=== PATIENT | female | born 1950 | race Caucasian/White ===

== ENCOUNTER 2022-04-28 08:55 | Outpatient (REF) | payer MEDICARE, SELFPAY ==
[2022-04-28 11:13] LABS: MANUAL DIFF FLAG NO
[2022-04-28 11:23] LABS: Basophils Absolute Auto 0.1 X10*3/uL (0.0-0.2); Eosinophils Absolute Auto 0.3 X10*3/uL (0.0-0.4); Eosinophils Percent Auto 4.9 % (0-4); Hematocrit 42.4 % (37.0-47.0); Hemoglobin 13.8 g/dl (12.0-16.0); Imm Gran Abs Auto 0.01 X10*3/uL (0.00-0.03); Imm Gran Pct Auto 0.2 % (0.0-0.4); Lymphocytes Absolute Auto 1.7 X10*3/uL (1.2-4.9); Lymphocytes Percent Auto 33.8 % (20-40); Mean Corpuscular HGB Conc 32.5 g/dl (31.0-35.0); Mean Corpuscular Hemoglobin 28.8 pg (27.0-33.0); Mean Corpuscular Volume 88.5 fL (80.0-98.0); Mean Platelet Volume 10.5 fL (9.4-12.3); Monocytes Absolute Auto 0.3 X10*3/uL (0.1-1.2); Monocytes Percent Auto 6.2 % (2-11); Neutrophils Absolute Auto 2.8 x10*3/uL (2.0-8.3); Neutrophils Percent Auto 53.9 % (45-73); Platelet Count 237 X10*3/uL (160-400); Red Blood Count 4.79 X10*6/uL (4.20-5.50); Red Cell Distribution Width 14.6 % (11.0-16.0); White Blood Count 5.2 X10*3/uL (4.8-10.8)
[2022-04-28 11:29] LABS: Appearance Urine HAZY; Color Urine YELLOW; Glucose Urine UA NEG (NEG); Leukocyte Esterase Urine TRACE (NEG); Nitrite Urine POS (NEG); PH 5.5 (5.0-8.0); Urine Blood TRACE (NEG); Urine Ketones NEG (NEG); Urine Protein NEG (NEG-TRACE)
[2022-04-28 11:46] LABS: Bacteria Urine 3+ /LPF; Squamous Epithelial Cell Urine 1+ /LPF
[2022-04-28 12:01] LABS: Alanine Aminotransferase 44 U/L (0-31); Albumin Level 4.5 g/dL (3.5-5.0); Alkaline Phosphatase 64 U/L (39-117); Anion Gap 15 (12-20); Aspartate Amino Transferase 29 U/L (5-31); Bilirubin Total 0.7 mg/dL (0.0-1.0); Blood Urea Nitrogen 20 mg/dL (9-16); Carbon Dioxide 20 mmol/L (22-29); Chloride 109 mmol/L (96-108); Cholesterol 267 mg/dL; Estimated Glomerular Filt Rate > 60; Glucose Fasting 84 mg/dL (60-99); HDL Cholesterol 45 mg/dL; LDL Cholesterol Calculated 200 mg/dl; Sodium 140 mmol/L (135-145); Total Protein 7.2 g/dL (6.5-8.0); Triglycerides 110 mg/dL
[2022-04-28 12:24] LABS: Free T4 (Free Thyroxine) 0.51 ng/dL (0.71-1.85); Thyroid Stimulating Hormone 60.46 uIU/mL (0.32-4.0)
[2022-04-30 21:07] LABS: Triiodothyronine T3 Total 55 ng/dL (76-181)
== END 2022-04-28 08:56 | disposition home or self-care (01) ==
LOC: HO.WFDLDS 08:55
PROVIDERS: Visit Provider Family Medicine
DX: Z00.00 Encounter for general adult medical examination without abnormal findings (principal); E03.9 Hypothyroidism, unspecified
CPT/HCPCS: 36415; 80053; 80061; 81001; 84439; 84443; 84480; 85025

== ENCOUNTER 2022-05-04 11:57 | Outpatient (REF) | payer MEDICARE, SELFPAY | END 2022-05-04 11:58 | disposition home or self-care (01) | LOC: HO.LAB 11:57 | PROVIDERS: Visit Provider Family Medicine | DX: R82.71 Bacteriuria (principal) | CPT/HCPCS: 87086; 87088; 87186 ==

== ENCOUNTER 2022-06-10 13:13 | Outpatient (REF) | payer MEDICARE, BC, SELFPAY ==
--- NOTE | ~2022-06-10 | US_ITS ---
EXAMINATION: US VENOUS ULTRASOUND WITH DOPPLER LOWER EXTREMITY, RIGHT CLINICAL INFORMATION: History of DVT. Leg pain. COMPARISON: None TECHNIQUE: Ultrasound of the deep veins is performed from the hip to the calf with compression sonography and color and pulse Doppler assessment. Spectral analysis with color-flow imaging is performed. FINDINGS: The right common femoral, profunda and proximal and mid superficial femoral vein are patent. There is hypoechoic and hyperechoic material adjacent to the wall of the distal superficial femoral vein more suggestive of chronic changes than acute DVT. The popliteal, posterior tibial and peroneal veins are patent. No Palma's cyst. . US/US venous duplex LE RT IMPRESSION: Mixed hyper and hypoechoic material against the wall of the distal superficial femoral vein. Appearance is more suggestive of chronic changes from DVT than acute DVT. Short-term follow-up exam in several days to assess for change may be helpful if clinically indicated.
== END 2022-06-10 13:14 | disposition home or self-care (01) ==
LOC: HO.US 13:13
PROVIDERS: PCP Family Medicine; Visit Provider Internal Medicine
DX: M79.604 Pain in right leg (principal); Z86.718 Personal history of other venous thrombosis and embolism
CPT/HCPCS: 93971

== ENCOUNTER 2022-07-01 12:24 | Outpatient (REF) | payer MEDICARE, SELFPAY ==
--- NOTE | ~2022-07-01 | MM_ITS ---
EXAMINATION: MM SCREENING DIGITAL BREAST TOMOSYNTHESIS, BILATERAL CLINICAL INFORMATION: Screening. Asymptomatic. Prior outside mammography from [place] currently unavailable. Age 72. Family history breast cancer, mother. The lifetime risk of breast cancer based on the Tyrer-Cuzick Model is 9%. COMPARISON: None. TECHNIQUE: Digital breast tomosynthesis is performed in both the craniocaudal and mediolateral oblique views along with computer-aided detection (CAD). Synthesized 2D images are generated from the tomosynthesis. Additional left MLO view is provided. FINDINGS: The breasts are almost entirely fatty (ACR BI-RADS breast composition Category a). Background stromal markings appearing normal. There is no significant mass or architectural abnormality or abnormal calcifications. There are scattered bilateral round and rim calcifications. The axilla and skin contours are unremarkable. MM/MM tomosynthesis screening BI IMPRESSION: No mammographic evidence of malignancy. ASSESSMENT: BI-RADS 1: Negative RECOMMENDATION: Routine annual mammography screening. This patient's information was entered into a reminder system with a target due date for their next mammogram.
--- NOTE | ~2022-07-01 | MM_ITS ---
EXAMINATION: BONE DENSITOMETRY CLINICAL INDICATION: Encounter for screening for osteoporosis. COMPARISON: None (current study represents initial baseline exam). TECHNIQUE: Using a Data Stream CBOT DXA System (software version: 13.1) manufactured by [employer], dual-energy x-ray absorptiometry was performed of the lumbar spine and left hip. The images are of good technical quality. Summary results are attached. FINDINGS: AP SPINE L1-L4: BMD 0.736 g/cm2, Z-score -2.3, T-score -3.7, osteoporosis. LEFT FEMUR, NECK: BMD 0.813 g/cm2, Z-score 0.0, T-score -1.6, osteopenia. LEFT FEMUR, TOTAL: BMD 0.837 g/cm2, Z-score 0.0, T-score -1.4, osteopenia. IDENTIFIED RISK FACTORS: Menopause, hysterectomy, bilateral oophorectomy, family history (parental hip fracture), height loss, history of fracture (adult). HISTORY OF FRACTURE: Hip, humerus. MEDICATIONS: Bisphosphonates, calcium. MM/XR DEXA axial skeleton IMPRESSION: 1. DIAGNOSIS: Osteoporosis based on the lowest T-score value of -3.7 in the lumbar spine applying World Health Organization criteria. 2. 10-YEAR FRACTURE RISK PREDICTION, FRAX: According to the guidelines, FRAX calculation should only be performed on patients in the osteopenia bone density category. Therefore, FRAX was not performed on this patient. 3. Treatment Recommendations: NOF guidelines recommend consideration for treatment in postmenopausal women and men age 50 and older presenting with the following: -A hip or vertebral (clinical or morphometric) fracture. -T-score less than or equal to -2.5 at the femoral neck or spine after appropriate evaluation to exclude secondary causes. -Low bone mass at the hip or spine and a 10-year fracture probability by FRAX of greater than or equal to 3% for hip fracture or greater than or equal to 20% for major osteoporotic fracture based on the [place] adapted WHO algorithm. 4. Other Recommendations: All treatment decisions require clinical judgment and consideration of individual patient factors, including patient preferences, comorbidities, previous drug use, risk factors not captured in the FRAX model (e.g. frailty, falls, vitamin D deficiency, increased bone turnover, interval significant decline in bone density) and possible under or overestimation of fracture risk by FRAX. Additional medical evaluation for secondary cause of low bone mineral density may be appropriate. FUTURE SCAN RECOMMENDATION: People with diagnosed cases of osteoporosis or at high risk for fracture should have regular bone mineral density tests. For patients eligible for Medicare, routine testing is allowed once every 2 years. The testing frequency can be increased to one year for patients who have rapidly progressing disease, those who are receiving or discontinuing medical therapy to restore bone mass, or have additional risk factors.
== END 2022-07-01 12:25 | disposition home or self-care (01) ==
LOC: HO.MAMMO 12:24
PROVIDERS: Visit Provider Family Medicine
DX: Z12.31 Encounter for screening mammogram for malignant neoplasm of breast (principal); Z13.820 Encounter for screening for osteoporosis; Z78.0 Asymptomatic menopausal state; Z90.722 Acquired absence of ovaries, bilateral; Z90.710 Acquired absence of both cervix and uterus; Z87.81 Personal history of (healed) traumatic fracture
CPT/HCPCS: 77063; 77067; 77080

== ENCOUNTER 2022-07-05 11:51 | Outpatient (REF) | payer MEDICARE, SELFPAY ==
[2022-07-05 14:51] LABS: Free T4 (Free Thyroxine) 1.34 ng/dL (0.71-1.85); Thyroid Stimulating Hormone 0.36 uIU/mL (0.32-4.0)
[2022-07-07 06:06] LABS: Triiodothyronine T3 Total 98 ng/dL (76-181)
== END 2022-07-05 11:52 | disposition home or self-care (01) ==
LOC: HO.WFDLDS 11:51
PROVIDERS: Visit Provider Family Medicine
DX: E03.9 Hypothyroidism, unspecified (principal)
CPT/HCPCS: 36415; 84439; 84443; 84480

== ENCOUNTER → 2022-07-12 09:35 | Outpatient (BNVA) | payer MEDICARE, SELFPAY | PROVIDERS: PCP Family Medicine; Referring Provider Family Medicine; Visit Provider Physician Assistant | DX: K64.9 Unspecified hemorrhoids (principal); Z86.010 Personal history of colon polyps; Z12.11 Encounter for screening for malignant neoplasm of colon | CPT/HCPCS: 99202 ==

== ENCOUNTER 2022-09-13 14:16 | Outpatient (REF) | payer MEDICARE, BC, SELFPAY | END 2022-09-13 14:17 | disposition home or self-care (01) | LOC: HO.US 14:16 | PROVIDERS: Visit Provider Internal Medicine Endocrinology, Diabetes & Metabolism | DX: E04.2 Nontoxic multinodular goiter (principal) | CPT/HCPCS: 76536 ==

== ENCOUNTER → 2022-09-27 10:24 | Outpatient (BNVA) | payer MEDICARE, BC, SELFPAY | PROVIDERS: PCP Family Medicine; Visit Provider Internal Medicine Endocrinology, Diabetes & Metabolism | DX: E03.9 Hypothyroidism, unspecified (principal); E04.1 Nontoxic single thyroid nodule; M85.80 Other specified disorders of bone density and structure, unspecified site | CPT/HCPCS: 99202 ==

== ENCOUNTER 2023-05-08 10:18 | Outpatient (AMB) | payer MEDICARE, BC, SELFPAY ==
--- NOTE | 2023-05-08 10:30 | MHC.PC.OV ---
Vital Signs 05/08/23 10:31 Height 5 ft 3 in Weight 148 lb 6 oz BMI 26.3 BP 110/68 Blood Pressure Location Rt brachial Position Sitting Respiration 12 Pulse 76 Pulse Source Pulse Oximeter Temp 98 F Temp Source Temporal Artery Scan Pulse Oximetry (%) 98 Oxygen Delivery Method Room Air Intake Visit Reasons: CPE with f/u labs and health maint. Intake Note: Patient cane in complaining of pain in her right rib. Patient has not gotten labs done since last year due to her being in [place]. 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 HPI Details 73 y/o female presents for a CPE with f/u labs and health maintenance. No recent labs to review. Bone density in June 2022 and she is on alendronate 70mg q week. She reports rib pain - she had been helping her in therapy showing him some exercises and she states she had felt a crack on the R side of her ribs. She reports rib pain x2 weeks. Coughing and deep breathing causes her pain. Pt reports a fungal infection on her toes. HPI Comments History of Present Illness Details Documentation assistance for Isidro Easley MD, was provided by Fredo Todd, Component Lab Tech on 05/08/2023 11:27 AM FUAD. Wesley, Dr. Easley, have read, observed, and verified documentation. PFSH Medical History Deep vein thrombosis Osteopenia Surgical History H/O: hysterectomy History of hip replacement Family History Mother Breast cancer Other Mental health disorder Social History Household Members: Children Housing: Apartment Patient Tobacco Use Status: Never used Tobacco e-Cigarette/Vaping Use: Never Used Second Hand Smoke Exposure: No service: No Current occupational status: retired Current occupational exposures/hazards: No Cognitive needs: No Hearing needs: No Vision needs: No Questionnaire PHQ-9 Over the last 2 weeks, how often have you been bothered by any of the following problems? 1. Little interest or pleasure in doing things: not at all 2. Feeling down, depressed, or hopeless: not at all 3. Trouble falling or staying asleep, or sleeping too much: not at all 4. Feeling tired or having little energy: not at all 5. Poor appetite or overeating: several days 6. Feeling bad about yourself - or that you are a failure or have let yourself or your family down: not at all 7. Trouble concentrating on things, such as reading the newspaper or watching television: not at all 8. Moving or speaking so slowly that other people could have noticed. Or the opposite - being so fidgety or restless that you have been moving around a lot more than usual: not at all 9. Thoughts that you would be better off or of hurting yourself in some way: not at all Total score: 1 Source: Developed by Drs. Rojelio Stratton, Tere Christian, Parish Coffman and colleagues, with an educational beth from [employer]. Thrive Questionnaire Date Thrive assessed: 05/08/23 I am a: Patient What is your living situation today?: I have a steady place to live Within the past 12 months, did the food you bought not last and you didn't have the money to get more?: Never true Within the past 12 months, did you worry whether your food would run out before you got money to buy more?: Never true Do you have trouble paying for medicines?: Yes Do you have trouble getting transportation to medical appointments?: Yes Do you have trouble paying your heating and electricity bill?: Yes Do you have trouble taking care of your child, family member or friend?: No Do you have trouble with day-to-day activities such as bathing, preparing meals, shopping, managing finances, etc.?: No Are you currently unemployed and looking for a job?: No Are you interested in more education?: No Please select the resources that you would like help with: Paying for medicine, Transportation and Utilities Currently or been in a relationship where the following occur: no concerns reported AUDIT C Alcohol Use Questionnaire (AUDIT-C) 1. How often do you have a drink containing alcohol?: Never 3. How often do you have six or more drinks on one occasion?: Never Total Score: 0 LUCAS-7 AMB Questionnaire LUCAS-7 Date LUCAS - 7 assessed: 05/08/23 Feeling nervous, anxious, or on edge: 0 = Not at all Not being able to stop or control worryin = Not at all Worrying too much about different things: 0 = Not at all Trouble relaxin = Not at all Being so restless that it is hard to sit still: 1 = Several days Becoming easily annoyed or irritable: 0 = Not at all Feeling afraid as if something awful might happen: 0 = Not at all Total LUCAS-7 score (0-4 normal; 5-9 mild; 10-14 moderate; 15-21 severe): 1 Source: Developed by Drs. Rojelio Stratton, Tere Christian, Parish Coffman and colleagues, with an educational beth from [employer]. Review of Systems Const Denies chills, Denies fatigue, Denies fever(s), Denies headache(s) and Denies weakness Eyes Denies change in vision ENT Denies dizziness, Denies headache(s), Denies hearing loss, Denies nasal congestion, Denies sinus pain, Denies sinus pressure and Denies sore throat Card Denies chest pain, Denies lightheadedness, Denies dyspnea and Denies other (palpitations) Resp Denies cough, Denies dyspnea and Denies wheezing GI Denies abdominal pain, Denies melena, Denies hematochezia, Denies change in bowel habits, Denies dyspepsia and Denies nausea Denies hematuria and Denies dysuria Musc Denies abnormal gait, Denies myalgias, Denies arthralgias, Denies numbness and Denies tingling Skin/Breast Denies rash, Denies unusual bruising and Denies wounds Neuro Denies abnormal gait, Denies dizziness, Denies headache(s), Denies memory loss, Denies numbness, Denies Sensory deficit (Neuro), Denies tingling and Denies weakness Psych Denies anxiety, Denies depression and Denies memory loss Endo Denies cold intolerance, Denies fatigue, Denies heat intolerance, Denies polydipsia and Denies polyuria Quinton/Lymph Denies easy bleeding and Denies easy bruising Aller/Immun Denies wheezing Physical exam (Primary Care) Vital Signs: Last Vital Signs Temp 98 F 05/08/23 10:31 Pulse 76 05/08/23 10:31 Resp 12 05/08/23 10:31 BP 110/68 05/08/23 10:31 Pulse Ox 98 05/08/23 10:31 Oxygen Delivery Method Room Air 05/08/23 10:31 BMI result Body Mass Index 26.3 Tobacco/Smoking Status: Tobacco use Status Tobacco use date assessed 05/08/23 05/08/23 10:55 Patient Tobacco Use Status Never used Tobacco 05/08/23 10:38 e-Cigarette/Vaping Use Never Used 05/08/23 10:38 PHQ-9: PHQ-9 Score PHQ-9: Total score 1 05/08/23 11:25 Thrive Assessment: Date of Thrive Assessment Date Thrive assessed 05/08/23 05/08/23 10:55 Currently or been in a relationship where the following occur: no concerns reported Const General: no acute distress, well developed, alert and awake Nutritional Appearance: well nourished Orientation/consciousness: patient oriented x3 HENMT Head: Yes normocephalic and Yes atraumatic Ears: hearing grossly normal bilaterally and TM's normal bilaterally General nose exam: Normal external nose present and Normal nares present Mouth: Normal oral and palatal mucosa present and moist mucous membranes Teeth and gingiva: dentition normal Throat: Yes posterior oropharynx normal Eyes General: appearance normal, both eyes and all related structures Pupils: Equal, round and reactive pupils present and Pupil accommodation reflex normal EOM: EOMs intact bilaterally Neck Neck: Yes normal visual inspection, Yes no lymphadenopathy and Yes trachea midline Thyroid: Thyroid normal Carotids: no bruits Lymphatic: no lymphadenopathy noted Chest Chest palpation & inspection: normal inspection of the chest Resp Effort & Inspection: normal respiratory effort Auscultation: clear to auscultation bilaterally Cardio Rate: regular rate Rhythm: regular rhythm Heart sounds: S1 normal heart sound present, S2 normal heart sound present, no gallops, no murmurs and no rubs Bruits: no abdominal aortic bruits and no carotid bruits GI Palpation (GI): No Abdominal aortic bruit present, Soft to palpation, nontender, No hepatosplenomegaly present and No Rebound tenderness present Auscultation: normal bowel sounds General: Yes no CVA tenderness Back/Spine/Pelvis Back: no CVA tenderness Cervical Spine: cervical ROM normal and No Cervical spine tenderness Thoracic/Lumbar Spine: thoraco-lumbar ROM normal, No pain with thoraco-lumbar ROM, No thoracic spinal tenderness and No lumbar spinal tenderness Skin Lesions: no lesions Rashes: no rashes Trauma: no lacerations or abrasions Wounds: no wounds Nails: normal Neuro General: patient oriented x3 Cranial nerves: Yes Equal, round and reactive pupils present Cognition (Neuro): normal cognition Gait exam (Neuro): Normal gait present Motor exam (neuro): 5/5 motor strength present throughout Sensory Exam: No Sensory deficit (Neuro) Deep tendon reflexes (DTR's): Right patellar reflex intensity grade: 2+ and Left patellar reflex intensity grade: 2+ Extrem General: Yes normal to inspection and No edema Psych Appearance: grossly normal Affect: normal affect Attitude: cooperative Thought process: Normal thought process present Assessment and Plan Assessment & Plan (1) Adult general medical examination: Code(s): Z00.00 - Encounter for general adult medical examination without abnormal findings Plan: 73-year-old female presents for CPE with follow-up labs and health maintenance (2) Osteoporosis: Code(s): M81.0 - Age-related osteoporosis without current pathological fracture Plan: Currently taking alendronate Due for repeat bone density testing next year (3) Back pain: Code(s): M54.9 - Dorsalgia, unspecified Plan: Back pain and patient has a history of osteoporosis. About a month ago she felt a crunching sensation back. Concern for compression fracture secondary to osteoporosis Check x-rays (4) Rib pain: Code(s): R07.81 - Pleurodynia Plan: Right rib pain after some stretching exercises and patient has osteoporosis. Checking x-ray to rule out pathologic fracture (5) Swelling of left foot: Code(s): M79.89 - Other specified soft tissue disorders Plan: Likely some venous insufficiency Encouraged elevation (6) Breast cancer screening by mammogram: Code(s): Z12.31 - Encounter for screening mammogram for malignant neoplasm of breast Plan: Due for mammogram in June and I have ordered her screening test. (7) Fungal infection: Code(s): B49 - Unspecified mycosis Plan: Trial clotrimazole cream If not improving will refer to Podiatry (8) Screening for colon cancer: Code(s): Z12.11 - Encounter for screening for malignant neoplasm of colon Plan: Will discuss at her follow-up visit Orders: Orders Comprehensive [place]. Panel Fast Today Z00.00 - Encounter for general adult medical examination without abnormal findings Lipid Panel Today Z00.00 - Encounter for general adult medical examination without abnormal findings Microalbumin, Random (w Creat) Today I10 - Essential (primary) hypertension Complete Blood Count Auto Diff Today Z00.00 - Encounter for general adult medical examination without abnormal findings UA and rflx microscopic Today Z00.00 - Encounter for general adult medical examination without abnormal findings Triiodothyronine T3 Total Today E03.9 - Hypothyroidism, unspecified Free T4 (Free Thyroxine) Today E03.9 - Hypothyroidism, unspecified Thyroid Stimulating Hormone Today E03.9 - Hypothyroidism, unspecified MM tomosynthesis screening BI Today Z12.31 - Encounter for screening mammogram for malignant neoplasm of breast XR ribs LT 2V Today R07.81 - Pleurodynia XR lumbar spine 2-3V Today M54.9 - Dorsalgia, unspecified, M81.0 - Age-related osteoporosis without current pathological fracture XR thoracic spine 2V Today M54.9 - Dorsalgia, unspecified, M81.0 - Age-related osteoporosis without current pathological fracture Referrals RESEARCH AND DEVELOPMENT CHEMIST Referral Z90.710 - Acquired absence of both cervix and uterus Medications: New clotrimazole 1% 1 appl topical BID 45 grams 0RF 4 weeks Coding Level of Care Code Est Pt Level 3 (63815) Est Pt Prev Care >65y(59381) Diagnoses Adult general medical examination Z00.00 Osteoporosis M81.0 Back pain M54.9 Rib pain R07.81 Swelling of left foot M79.89 Breast cancer screening by mammogram Z12.31 Fungal infection B49 Screening for colon cancer Z12.11
[2023-05-08 10:31] VITALS: BP 110/68; PULSE 76; RESP 12; TEMP 36.6; O2SAT 98; BMI 26.3
== END 2023-05-08 11:49 | disposition home or self-care (01) ==
PROVIDERS: PCP Family Medicine; Visit Provider Family Medicine
DX: Z00.00 Encounter for general adult medical examination without abnormal findings (principal); R07.81 Pleurodynia; M54.9 Dorsalgia, unspecified; M81.0 Age-related osteoporosis without current pathological fracture; M79.89 Other specified soft tissue disorders; B49 Unspecified mycosis
CPT/HCPCS: 99213; 99397

== ENCOUNTER 2023-05-08 11:56 | Outpatient (REF) | payer MEDICARE, BC, SELFPAY ==
[2023-05-08 14:51] LABS: Appearance Urine Clear; Color Urine Yellow; Glucose Urine UA Negative (Negative); Leukocyte Esterase Urine Trace (Negative); Nitrite Urine Positive (Negative); PH 5.5 (5.0-9.0); UMIC TRIGGER UA YES; Urine Blood Negative (Negative); Urine Ketones Negative (Negative); Urine Protein Negative (Neg-Trace)
[2023-05-08 14:57] LABS: Bacteria Urine 4+ (None Seen); Hyaline Casts Urine 0-2 /LPF (0-2); RBC Urine 0-2 /HPF (0-2); Squamous Epithelial Cell Urine 0-2 /HPF (0-2); WBC Urine 0-5 /HPF (0-5)
[2023-05-09 02:34] LABS: Creatinine Urine 89.86 mg/dL
== END 2023-05-08 11:57 | disposition home or self-care (01) ==
LOC: HO.LAB 11:56
PROVIDERS: Visit Provider Family Medicine
DX: I10 Essential (primary) hypertension (principal)
CPT/HCPCS: 81001; 82043

== ENCOUNTER 2023-06-01 16:37 | Outpatient (AMB) | payer MEDICARE, BC, SELFPAY ==
--- NOTE | 2023-06-01 16:29 | MHC.PC.OV ---
Vital Signs 06/01/23 16:30 Height 5 ft 3 in Intake Visit Reasons: f/u CPE-labs and R rib pain Intake Note: Patient is calling to follow up on labs and right rib pain. Allergies walnut Allergy (Intermediate, Verified 05/08/23 10:47) tongue irritation codeine Allergy (Mild, Verified 05/08/23 10:47) Palpitations Tobacco use date assessed: 06/01/23 Fall risk assessment: No Falls in past year Last assessed Fall Risk: 06/01/23 Dental Screening Dental Screen Date: 06/01/23 Did you have a dental visit in the last 12 months?: Yes Did you have a dental problem in the last 6 months where you did not have access to dental care?: No Was dental information given to patient?: Patient has dentist HPI f/u CPE-labs and R rib pain HPI Details 73 y/o female presents to f/u labs via telemedicine. Diagnostic report 05/19/23 shows mildly displaced fractures of anterior R seventh, eight and ninth ribs. No pneumothroax or hemthorax. 4+ urine bacteria seen from labs drawn 05/08/23. [facility] Medical History (Updated 06/01/23 @ 16:33 by Carla Arredondo SKI MOLDER) Pituitary cyst Deep vein thrombosis Osteopenia Surgical History History of hip replacement H/O: hysterectomy Family History Mother Breast cancer Other Mental health disorder Social History Household Members: Children Housing: Apartment Patient Tobacco Use Status: Never used Tobacco e-Cigarette/Vaping Use: Never Used Second Hand Smoke Exposure: No service: No Current occupational status: retired Current occupational exposures/hazards: No Cognitive needs: No Hearing needs: No Vision needs: No Questionnaire Thrive Questionnaire Date Thrive assessed: 05/08/23 LUCAS-7 AMB Questionnaire LUCAS-7 Date ULCAS - 7 assessed: 05/08/23 Source: Developed by Drs. Rojelio Stratton, Tere Christian, Parish Coffman and colleagues, with an educational beth from [employer]. Review of Systems Const Denies chills, Denies fatigue, Denies fever(s), Denies headache(s) and Denies weakness ENT Denies dizziness and Denies headache(s) Card Denies dyspnea Resp Denies cough, Denies dyspnea, Denies wheezing and Denies other (shortness of breath) Musc Denies numbness and Denies tingling Neuro Denies dizziness, Denies headache(s), Denies numbness, Denies tingling and Denies weakness Psych Denies anxiety and Denies depression Endo Denies fatigue Aller/Immun Denies wheezing Physical exam (Primary Care) Tobacco/Smoking Status: Tobacco use Status Tobacco use date assessed 06/01/23 06/01/23 16:35 Patient Tobacco Use Status Never used Tobacco 06/01/23 16:30 e-Cigarette/Vaping Use Never Used 06/01/23 16:30 Thrive Assessment: Date of Thrive Assessment Date Thrive assessed 05/08/23 06/01/23 16:30 Telehealth Telehealth Location of provider rendering services: practice address Location of patient: address on file Patient Identification confirmed using: Name, : Yes Telehealth method: voice only Patient verbally consented to treatment: Yes Patient verbally consented to billing insurance company: Yes Patient informed of any privacy concerns related to visit: Yes Minutes spent on Phone/Video with Pt.: 13 Assessment and Plan Assessment & Plan (1) Rib pain: Code(s): R07.81 - Pleurodynia Plan: Right rib pain and patient has a minimally displaced fracture at 8th and 9th ribs She can continue ibuprofen, ice and heat (2) Bacteriuria: Code(s): R82.71 - Bacteriuria Plan: Urine studies were suspicious for UTI and she had had prior UTIs. Give her a script for nitrofurantoin. Repeat urinalysis shows no evidence of infection or back tree urine (3) Screening for colon cancer: Code(s): Z12.11 - Encounter for screening for malignant neoplasm of colon Plan: She has not had her colonoscopy yet and I have made a new referral to gastroenterology. Also she notes some blood in her stools. Follow-up with Gastroenterology as recommended (4) Osteoporosis: Code(s): M81.0 - Age-related osteoporosis without current pathological fracture Plan: History of osteoporosis and patient had recent fall with rib and vertebral compression fracture She is on alendronate Continue alendronate Follow-up with ortho for compression fracture (5) Blood in stool: Code(s): K92.1 - Melena Plan: As above, referred to GI (6) Hypothyroidism: Code(s): E03.9 - Hypothyroidism, unspecified Plan: TSH is mildly low No changes to medication today. She will repeat her thyroid hormone levels and we will follow-up on these at her next visit. If values are still off, will adjust levothyroxine. Orders: Orders Triiodothyronine T3 Total Today E03.9 - Hypothyroidism, unspecified Thyroid Stimulating Hormone Today E03.9 - Hypothyroidism, unspecified Basic Metabolic Panel Today E03.9 - Hypothyroidism, unspecified, Z00.00 - Encounter for general adult medical examination without abnormal findings Free T4 (Free Thyroxine) Today E03.9 - Hypothyroidism, unspecified Complete Blood Count Auto Diff Today E03.9 - Hypothyroidism, unspecified, Z00.00 - Encounter for general adult medical examination without abnormal findings Referrals Gastroenterology Referral K92.1 - Melena, Z12.11 - Encounter for screening for malignant neoplasm of colon Medications: Refilled ibuprofen 400 mg PO Q8H PRN 52 tabs 1RF pain 14 days E03.9 - Hypothyroidism, unspecified Coding Level of Care Code Tele Est Pt Level 2 (24515) Diagnoses Rib pain R07.81 Bacteriuria R82.71 Screening for colon cancer Z12.11 Osteoporosis M81.0 Blood in stool K92.1 Hypothyroidism E03.9
== END 2023-06-01 17:00 ==
LOC: HO.HMGFM 16:37
PROVIDERS: PCP Family Medicine; Visit Provider Family Medicine
DX: R07.81 Pleurodynia (principal); R82.71 Bacteriuria; E03.9 Hypothyroidism, unspecified; Z12.11 Encounter for screening for malignant neoplasm of colon; M81.0 Age-related osteoporosis without current pathological fracture; K92.1 Melena
CPT/HCPCS: G2252

== ENCOUNTER 2023-09-15 11:54 | Outpatient (REF) | payer MEDICARE, BC, SELFPAY ==
[2023-09-15 14:40] LABS: MANUAL DIFF FLAG NO
[2023-09-15 14:46] LABS: Basophils Percent Auto 0.8 % (0-2); Eosinophils Absolute Auto 0.1 X10*3/uL (0.0-0.4); Eosinophils Percent Auto 2.1 % (0-4); Hematocrit 44.5 % (37.0-47.0); Hemoglobin 14.5 g/dl (12.0-16.0); Imm Gran Abs Auto 0.01 X10*3/uL (0.00-0.03); Imm Gran Pct Auto 0.2 % (0.0-0.4); Lymphocytes Absolute Auto 1.7 X10*3/uL (1.2-4.9); Lymphocytes Percent Auto 33.5 % (20-40); Mean Corpuscular HGB Conc 32.6 g/dl (31.0-35.0); Mean Corpuscular Hemoglobin 28.9 pg (27.0-33.0); Mean Corpuscular Volume 88.8 fL (80.0-98.0); Mean Platelet Volume 10.7 fL (9.4-12.3); Monocytes Absolute Auto 0.4 X10*3/uL (0.1-1.2); Monocytes Percent Auto 6.8 % (2-11); Neutrophils Absolute Auto 2.9 x10*3/uL (2.0-8.3); Neutrophils Percent Auto 56.6 % (45-73); Platelet Count 215 X10*3/uL (160-400); Red Blood Count 5.01 X10*6/uL (4.20-5.50); Red Cell Distribution Width 13.4 % (11.0-16.0); White Blood Count 5.1 X10*3/uL (4.8-10.8)
[2023-09-15 15:10] LABS: Anion Gap 14 (12-20); Blood Urea Nitrogen 22 mg/dL (9-16); Calcium 9.6 mg/dL (8.4-10.2); Carbon Dioxide 23 mmol/L (22-29); Chloride 108 mmol/L (96-108); Estimated Glomerular Filt Rate > 60; Glucose Random 85 mg/dL (60-115); Potassium 3.7 mmol/L (3.3-5.1); Sodium 141 mmol/L (135-145)
[2023-09-15 15:29] LABS: Free T4 (Free Thyroxine) 1.19 ng/dL (0.71-1.85); Thyroid Stimulating Hormone 0.23 uIU/mL (0.32-4.0)
[2023-09-16 08:58] LABS: Triiodothyronine T3 Total 104 ng/dL (76-181)
== END 2023-09-15 11:55 | disposition home or self-care (01) ==
LOC: HO.WFDLDS 11:54
PROVIDERS: Visit Provider Family Medicine
DX: Z00.00 Encounter for general adult medical examination without abnormal findings (principal); E03.9 Hypothyroidism, unspecified; R35.0 Frequency of micturition
CPT/HCPCS: 36415; 80048; 84439; 84443; 84480; 85025

== ENCOUNTER 2023-09-15 12:08 | Outpatient (REF) | payer MEDICARE, BC, SELFPAY ==
[2023-09-15 18:22] LABS: Appearance Urine Clear; Color Urine Yellow; Glucose Urine UA Negative (Negative); Leukocyte Esterase Urine Small (1+) (Negative); Nitrite Urine Negative (Negative); PH 5.5 (5.0-9.0); Specific Gravity - Urine 1.025 (1.005-1.025); UMIC TRIGGER UACC YES; Urine Blood Negative (Negative); Urine Ketones Negative (Negative); Urine Protein Negative (Neg-Trace)
[2023-09-15 18:30] LABS: Bacteria Urine None Seen (None Seen); Hyaline Casts Urine 0-2 /LPF (0-2); RBC Urine 0-2 /HPF (0-2); Squamous Epithelial Cell Urine 0-2 /HPF (0-2); UACC Culture Trigger YES; WBC Urine 0-5 /HPF (0-5)
== END 2023-09-15 12:09 | disposition home or self-care (01) ==
LOC: HO.LAB 12:08
PROVIDERS: Visit Provider Family Medicine
DX: R35.0 Frequency of micturition (principal)
CPT/HCPCS: 81001; 87086

== ENCOUNTER 2023-09-21 11:01 | Outpatient (AMB) | payer MEDICARE, BC, SELFPAY ==
--- NOTE | 2023-09-21 11:22 | A.OFFPC_ITS ---
Vital Signs 09/21/23 11:23 Height 5 ft 3 in Weight 160 lb BMI 28.3 BP 108/62 Blood Pressure Location Rt brachial Position Sitting Respiration 13 Pulse 95 Pulse Source Pulse Oximeter Pulse Oximetry (%) 96 Oxygen Delivery Method Room Air Intake Visit Reasons: f/u hypothyroidism Intake Note: Patient is here to review her labs. Patient reports she has no concerns at this time. 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 Labs were drawn 09/15/23. Reviewed labs with pt. TSH worsened from 0.36 to 0.23. She is on levothyroxine 125mcg daily. Pt notes she has a surgery for her R knee soon with an accounts payable specialist at [place]. [facility] Medical History (Updated 06/01/23 @ 16:33 by Carla Arredondo [facility]) Pituitary cyst Deep vein thrombosis Osteopenia Surgical History History of hip replacement H/O: hysterectomy Family History Mother Breast cancer Other Mental health disorder Social History Household Members: Children Housing: Apartment Patient Tobacco Use Status: Never used Tobacco e-Cigarette/Vaping Use: Never Used Second Hand Smoke Exposure: No service: No Current occupational status: retired Current occupational exposures/hazards: No Cognitive needs: No Hearing needs: No Vision needs: No Questionnaire Thrive Questionnaire Date Thrive assessed: 05/08/23 LUCAS-7 AMB Questionnaire LUCAS-7 Date LUCAS - 7 assessed: 05/08/23 Source: Developed by Drs. Rojelio Stratton, Tere Christian, Parish Coffman and colleagues, with an educational beth from [employer]. Review of Systems Const Denies chills, Denies fatigue, Denies fever(s), Denies headache(s) and Denies weakness ENT Denies dizziness and Denies headache(s) Card Denies chest pain, Denies lightheadedness, Denies dyspnea and Denies other (Palpitations) Resp Denies cough, Denies dyspnea, Denies wheezing and Denies other ( shortness of breath) Musc Denies numbness and Denies tingling Neuro Denies dizziness, Denies headache(s), Denies numbness, Denies tingling, Denies paresthesias and Denies weakness Psych Denies anxiety and Denies depression Endo Denies fatigue Aller/Immun Denies wheezing Physical exam (Primary Care) Vital Signs: Last Vital Signs Pulse 95 09/21/23 11:23 Resp 13 09/21/23 11:23 BP 108/62 09/21/23 11:23 Pulse Ox 96 09/21/23 11:23 Oxygen Delivery Method Room Air 09/21/23 11:23 BMI result Body Mass Index 28.3 Tobacco/Smoking Status: Tobacco use Status Tobacco use date assessed 06/01/23 09/21/23 11:27 Patient Tobacco Use Status Never used Tobacco 09/21/23 11:27 e-Cigarette/Vaping Use Never Used 09/21/23 11:27 Thrive Assessment: Date of Thrive Assessment Date Thrive assessed 05/08/23 09/21/23 11:27 Const General: no acute distress and well developed Nutritional Appearance: well nourished Orientation/consciousness: patient oriented x3 [facility] Head: Yes normocephalic and Yes atraumatic Eyes General: appearance normal, both eyes and all related structures Pupils: Equal, round and reactive pupils present EOM: EOMs intact bilaterally Resp Effort & Inspection: normal respiratory effort Auscultation: clear to auscultation bilaterally Cardio Rate: regular rate Rhythm: regular rhythm Heart sounds: S1 normal heart sound present, S2 normal heart sound present, no gallops, no murmurs and no rubs Neuro General: patient oriented x3 and gait normal Cranial nerves: Yes Equal, round and reactive pupils present Psych Affect: normal affect Assessment and Plan Assessment & Plan (1) Hypothyroidism: Code(s): E03.9 - Hypothyroidism, unspecified Plan: TSH?still?mildly?suppressed. She?is?taking?levothyroxine?125?mcg?daily. She?will?take?levothyroxine?125?mcg?each?day?Monday?through?Monday?and?she?will? take?1/2?tab 62.5mcg on?Saturdays. If?we?need?to?reduce?levothyroxine?further,?we?will?have?her?take?112?mcg?each?d ay. (2) Right knee pain: Code(s): M25.561 - Pain in right knee Plan: Follow-up?with?ortho?as?recommended Orders: Orders Comprehensive Met. Panel Today E03.9 - Hypothyroidism, unspecified Free T4 (Free Thyroxine) Today E03.9 - Hypothyroidism, unspecified Thyroid Stimulating Hormone Today E03.9 - Hypothyroidism, unspecified Triiodothyronine T3 Total Today E03.9 - Hypothyroidism, unspecified Medications: Refilled alendronate 70 mg PO QWEEK 4 tabs 3RF 28 days cholecalciferol (vitamin D3) 50 mcg PO DAILY 90 caps 2RF 90 days Coding Level of Care Code Est Pt Level 3 (98993) Diagnoses Hypothyroidism E03.9 Right knee pain M25.561
[2023-09-21 11:23] VITALS: BP 108/62; PULSE 95; RESP 13; O2SAT 96; BMI 28.3
== END 2023-09-21 12:20 | disposition home or self-care (01) ==
PROVIDERS: PCP Family Medicine; Visit Provider Family Medicine
DX: E03.9 Hypothyroidism, unspecified (principal); M25.561 Pain in right knee
CPT/HCPCS: 99213

== ENCOUNTER 2024-03-07 14:23 | Outpatient (AMB) | payer MEDICARE, SELFPAY ==
[2024-03-07 14:24] VITALS: BP 100/70; PULSE 80; BMI 29.3
--- NOTE | 2024-03-07 14:24 | MHC.OFFVIS ---
Vital Signs 03/07/24 14:24 Height 5 ft 3 in Weight 165 lb 5.547 oz BMI 29.3 BP 100/70 Blood Pressure Location Rt brachial Position Sitting Pulse 80 Pulse Source Pulse Oximeter Intake Visit Reasons: f/u hypothyroidism/CONFIRMED Intake Note: Patient present today for Hypothyroidism follow up visit. Acetylene Gas Compressor Required: No Accompanied by: Self / Same As Patient Allergies walnut Allergy (Intermediate, Verified 03/07/24 14:28) tongue irritation codeine Allergy (Mild, Verified 03/07/24 14:28) Palpitations HPI Comments Details: 73 YO F with who is seen in consultation at the request of his PCP for Hyothyroidism. First diagnosed with Hypothyroidism 20 yrs ago with labs revealing hypothyroidism. Saw endo in [place] Currently using levothyroxine 125 ug QD. Denies fatigue, weight gain, cold intolerance, dry skin, hair loss, constipation. There is no hx of hyperlipidemia . Denies obstructive sx of goiter . Denies consuming any kelp or seaweed. Denies taking amiodarone. No family hx of thyroid problems She mentioned that she had a biopsy of 2 nodules and [place] but no information or records are available. She also mentioned she had a pituitary cyst in [place] but she was not sent for that reason today nor does she have any records Biotin: No thyroid ultrasound: 08/26/2022 FINDINGS: ? SIZE: Measurements of the thyroid lobes and nodules are given in sagittal, anteroposterior and transverse dimensions respectively. Right Thyroid Lobe: 4.1 x 1.4 x 1.6 cm, volume 5.1 mL. Parenchyma: The gland echotexture is heterogeneous. Thyroid vascularity is normal. Left Thyroid Lobe: 3.5 x 1.1 x 1.2 cm, volume 2.4 mL. Parenchyma: The gland echotexture is heterogeneous. Thyroid vascularity is normal. Isthmus: 0.16 cm in maximum AP dimension. Estimated total number of nodules greater than or equal to 1 cm: 0. Vision Therapist nodules are described as follows: 1. Location: Left mid. ?? ? Size: 0.2 x 0.2 x 0.1? cm, volume 0.00 to mL. ?? ? Nodule characteristics: ?? ? Composition: Solid (2). ?? ? Echogenicity: Hyperechoic (1). ?? ? Shape: Not taller than wide (0). ?? ? Margins: Smooth (0). ?? ? Echogenic Foci: None (0). ?? ? ACR TI-RADS total points: 3 ?? ? ACR TI-RADS category: 3 NODES: Bilateral cervical nodes are seen, none measuring pathologically enlarged measuring up to 0.6 mL short axis on the right and 0.4 similar short axis on the left. No suspicious cervical adenopathy. US/US thyroid IMPRESSION: Tiny 2 mm TR 3 left thyroid nodule which does not meet criteria for follow-up. ? Heterogeneous thyroid which can be seen in the setting of thyroiditis. Labs: 07/05/2022 TSH = 0.36 PFSH Medical History (Updated 06/01/23 @ 16:33 by Carla Arredondo [facility]) Pituitary cyst Deep vein thrombosis Osteopenia Surgical History History of hip replacement H/O: hysterectomy Family History Mother Breast cancer Other Mental health disorder Social History Household Members: Children Housing: Apartment Patient Tobacco Use Status: Never used Tobacco e-Cigarette/Vaping Use: Never Used Second Hand Smoke Exposure: No service: No Current occupational status: retired Current occupational exposures/hazards: No Cognitive needs: No Hearing needs: No Vision needs: No Physical Exam Vital Signs: Last Vital Signs Pulse 80 03/07/24 14:24 BP 100/70 03/07/24 14:24 BMI result Body Mass Index 29.3 HEENT reveals absence of lid lag , stare or proptosis or eyebrow loss. Thyroid gland measure 15 gms . No nodules or tenderness palpated. There is no cervical adenopathy palpated. Lungs CTA. Heart S1, S2 Reg R/R -M/R/G. Abdominal exam benign. Skin exam reveals absence of dryness or thyroid dermopathy or vitiligo. Nail exam reveals absence of thyroid acropachy or oncholysis. Neurologic exam reveals 2+ reflexes . Muscle Strength is 5/5 proximally. There are no tremors in upper extremities. Assessment & Plan Assessment & Plan (1) Hypothyroidism: Code(s): E03.9 - Hypothyroidism, unspecified Category: Medical Plan: this 73-year-old female with a history of hypothyroidism be replaced on 125 mcg levothyroxine. She appears to be clinically biochemically euthyroid. Plan is obtain the TSH level that was drawn at [facility] lab [place] and then adjust the levothyroxine accordingly . She did alert me to a previous problem of pituitary cyst that was operated on at [place]. I told her obtain some information to his operative reports and laboratory evaluation +office notes from [place] and to schedule a new patient appointment for this new diagnosis Coding Level of Care Code Est Pt Level 3 (68094) Diagnoses Hypothyroidism E03.9
== END 2024-03-07 15:04 | disposition home or self-care (01) ==
PROVIDERS: PCP Family Medicine; Visit Provider Internal Medicine Endocrinology, Diabetes & Metabolism
DX: E03.9 Hypothyroidism, unspecified (principal)
CPT/HCPCS: 99213

== ENCOUNTER → 2024-03-07 14:23 | Outpatient (BNVA) | payer MEDICARE, SELFPAY | PROVIDERS: PCP Family Medicine; Visit Provider Internal Medicine Endocrinology, Diabetes & Metabolism | DX: E03.9 Hypothyroidism, unspecified (principal) | CPT/HCPCS: 99212 ==

== ENCOUNTER 2024-05-15 09:14 | Outpatient (REF) | payer BC, MEDICARE, SELFPAY ==
[2024-05-15 11:40] LABS: Alanine Aminotransferase 38 U/L (0-31); Albumin Level 4.4 g/dL (3.5-5.0); Alkaline Phosphatase 77 U/L (39-117); Anion Gap 9 (12-20); Aspartate Amino Transferase 28 U/L (5-31); Bilirubin Total 0.6 mg/dL (0.0-1.0); Blood Urea Nitrogen 19 mg/dL (9-16); Calcium 9.7 mg/dL (8.4-10.2); Carbon Dioxide 29 mmol/L (22-29); Chloride 109 mmol/L (96-108); Estimated Glomerular Filt Rate > 60; Glucose Random 85 mg/dL (60-115); Potassium 3.7 mmol/L (3.3-5.1); Sodium 143 mmol/L (135-145); Total Protein 7.4 g/dL (6.5-8.0)
[2024-05-15 11:58] LABS: Thyroid Stimulating Hormone 0.74 uIU/mL (0.32-4.0)
[2024-05-15 14:16] LABS: Appearance Urine Cloudy; Color Urine Yellow; Glucose Urine UA Negative (Negative); Leukocyte Esterase Urine Small (1+) (Negative); Nitrite Urine Positive (Negative); PH 5.5 (5.0-9.0); UMIC TRIGGER UACC YES; Urine Blood Negative (Negative); Urine Ketones Trace mg/dL (Negative); Urine Protein Negative (Neg-Trace)
[2024-05-15 14:28] LABS: Bacteria Urine 4+ (None Seen); Hyaline Casts Urine 0-2 /LPF (0-2); RBC Urine 0-2 /HPF (0-2); UACC Culture Trigger YES; WBC Urine 0-5 /HPF (0-5)
[2024-05-15 15:07] LABS: Free T4 (Free Thyroxine) 1.07 ng/dL (0.71-1.85)
[2024-05-16 07:38] LABS: Triiodothyronine T3 Total 102 ng/dL (76-181)
== END 2024-05-15 09:15 | disposition home or self-care (01) ==
LOC: HO.WFDLDS 09:14
PROVIDERS: Referring Provider Internal Medicine Endocrinology, Diabetes & Metabolism; Visit Provider Family Medicine
DX: E03.9 Hypothyroidism, unspecified (principal); R35.0 Frequency of micturition
CPT/HCPCS: 36415; 80053; 81001; 84439; 84443; 84480; 87086; 87088; 87186

== ENCOUNTER → 2024-05-16 14:56 | Outpatient (AMB) | payer MEDICARE, BC, SELFPAY ==
--- NOTE | 2024-05-16 14:50 | A.OFFPC_ITS ---
Intake Visit Reasons: f/u hypothyroidism Intake Note: f/u on labs Allergies walnut Allergy (Intermediate, Verified 05/16/24 14:51) tongue irritation codeine Allergy (Mild, Verified 05/16/24 14:51) Palpitations Medication List - Last Reconciled 05/16/24 by Isidro Easley MD alendronate 70 mg PO QWEEK 28 days aspirin 81 mg PO DAILY atorvastatin (Lipitor) 40 mg PO BEDTIME 90 days calcium carbonate 600 mg PO DAILY 90 days cholecalciferol (vitamin D3) 50 mcg PO DAILY 90 days clotrimazole 1% 1 appl topical BID 4 weeks ibuprofen 400 mg PO Q8H PRN 14 days levothyroxine 112 mcg PO DAILY nitrofurantoin monohyd/m-cryst 100 mg 100 mg PO Q12H 5 days Tobacco use date assessed: 06/01/23 Dental Screening Dental Screen Date: 06/01/23 HPI f/u hypothyroidism HPI Details 74 y/[facility]. Labs drawn 05/15/24. Reviewed labs with pt. Elevated ALT of 38. TSH improved from 0.23 to 0.74. She is on levothyroxine 112mcg daily. 4+ urine bacteria seen. She reports some urinary frequency. Pt reports R knee pain and requesting an orthopedic referral. HPI Comments History of Present Illness Details Documentation assistance for Isidro Easley MD, was provided by Fredo Todd, Logistics Engineering Manager on 05/16/2024 at 3:52 PM EST. I, Dr. Easley, have read, observed, and verified documentation. [facility] Medical History (Updated 05/16/24 @ 16:04 by Isidro Easley MD) Pituitary cyst Deep vein thrombosis Osteopenia Surgical History History of hip replacement H/O: hysterectomy Family History Mother Breast cancer Other Mental health disorder Social History Household Members: Children Housing: Apartment Patient Tobacco Use Status: Never used Tobacco e-Cigarette/Vaping Use: Never Used Second Hand Smoke Exposure: No service: No Current occupational status: retired Current occupational exposures/hazards: No Cognitive needs: No Hearing needs: No Vision needs: No Questionnaire Thrive Questionnaire Date Thrive assessed: 05/08/23 LUCAS-7 AMB Questionnaire LUCAS-7 Date LUCAS - 7 assessed: 05/08/23 Source: Developed by Drs. Rojelio Stratton, Tere Christian, Parish Coffman and colleagues, with an educational beth from [employer]. Review of Systems Const Denies chills, Denies fatigue, Denies fever(s), Denies headache(s) and Denies weakness ENT Denies dizziness and Denies headache(s) Card Denies dyspnea Resp Denies cough, Denies dyspnea, Denies wheezing and Denies other (shortness of breath) Details: Urinary frequency Musc Denies numbness and Denies tingling Neuro Denies dizziness, Denies headache(s), Denies numbness, Denies tingling and Denies weakness Psych Denies anxiety and Denies depression Endo Denies fatigue Aller/Immun Denies wheezing Physical exam (Primary Care) Tobacco/Smoking Status: Tobacco use Status Tobacco use date assessed 06/01/23 05/16/24 14:50 Patient Tobacco Use Status Never used Tobacco 05/16/24 14:50 e-Cigarette/Vaping Use Never Used 05/16/24 14:50 Thrive Assessment: Date of Thrive Assessment Date Thrive assessed 05/08/23 05/16/24 14:50 Telehealth Telehealth Telehealth Platform: Telephone Location of provider rendering services: practice address Location of patient: address on file Patient Identification confirmed using: Name, : Yes Telehealth method: voice only Patient verbally consented to treatment: Yes Patient verbally consented to billing insurance company: Yes Patient informed of any privacy concerns related to visit: Yes Minutes spent on Phone/Video with Pt.: 6 Assessment and Plan Assessment & Plan (1) Hypothyroidism: Code(s): E03.9 - Hypothyroidism, unspecified Plan: Thyroid?hormone?levels?are?within?normal?range?at?112?mcg?daily Continue?current?medication?regimen (2) Bacteriuria: Code(s): R82.71 - Bacteriuria Plan: Patient?notes?some?frequency.??Possible?UTI Will?send?script?for?Macrobid (3) Elevated alanine aminotransferase (ALT) level: Code(s): R74.01 - Elevation of levels of liver transaminase levels Plan: Will?recheck?liver?enzymes?prior?to?next?visit (4) Right knee pain: Code(s): M25.561 - Pain in right knee Plan: Worsening?right?knee?pain?with?history?of?right?knee?osteoarthritis. Patient?requests?referral?to?Ortho - referred Orders: Orders Comprehensive [place]. Panel Fast Today R74.8 - Abnormal levels of other serum enzymes Referrals Orthopedics Referral M17.11 - Unilateral primary osteoarthritis, right knee, M25.561 - Pain in right knee Medications: Refilled nitrofurantoin monohyd/m-cryst 100 mg must administer with a meal/food 100 mg PO Q12H 5 days 10 caps 0RF Coding Level of Care Code Tele Est Pt Level 2 (36051) Diagnoses Hypothyroidism E03.9 Bacteriuria R82.71 Elevated alanine aminotransferase (ALT) level R74.01 Right knee pain M25.561
== END ==
PROVIDERS: PCP Family Medicine; Visit Provider Family Medicine
DX: E03.9 Hypothyroidism, unspecified (principal); R82.71 Bacteriuria; R74.01 Elevation of levels of liver transaminase levels; M25.561 Pain in right knee
CPT/HCPCS: 99441

== ENCOUNTER 2024-11-06 11:59 | Outpatient (REF) | payer BC, MEDICARE, SELFPAY ==
[2024-11-06 14:28] LABS: MANUAL DIFF FLAG NO
[2024-11-06 14:34] LABS: Basophils Percent Auto 0.7 % (0-2); Eosinophils Absolute Auto 0.1 X10*3/uL (0.0-0.4); Eosinophils Percent Auto 2.4 % (0-4); Hemoglobin 14.7 g/dl (12.0-16.0); Imm Gran Abs Auto 0.01 X10*3/uL (0.00-0.03); Imm Gran Pct Auto 0.2 % (0.0-0.4); Lymphocytes Absolute Auto 1.7 X10*3/uL (1.2-4.9); Lymphocytes Percent Auto 31.3 % (20-40); Mean Corpuscular HGB Conc 32.7 g/dl (31.0-35.0); Mean Corpuscular Hemoglobin 28.7 pg (27.0-33.0); Mean Corpuscular Volume 87.7 fL (80.0-98.0); Mean Platelet Volume 10.5 fL (9.4-12.3); Monocytes Absolute Auto 0.3 X10*3/uL (0.1-1.2); Monocytes Percent Auto 6.1 % (2-11); Neutrophils Absolute Auto 3.3 x10*3/uL (2.0-8.3); Neutrophils Percent Auto 59.3 % (45-73); Platelet Count 240 X10*3/uL (160-400); Red Blood Count 5.13 X10*6/uL (4.20-5.50); Red Cell Distribution Width 13.6 % (11.0-16.0); White Blood Count 5.5 X10*3/uL (4.8-10.8)
[2024-11-06 14:42] LABS: Appearance Urine Clear; Color Urine Yellow; Glucose Urine UA Negative (Negative); Leukocyte Esterase Urine Small (1+) (Negative); Nitrite Urine Positive (Negative); PH 5.5 (5.0-9.0); UMIC TRIGGER UA YES; Urine Blood Negative (Negative); Urine Ketones Trace mg/dL (Negative); Urine Protein Negative (Neg-Trace)
[2024-11-06 14:47] LABS: Bacteria Urine 4+ (None Seen); Hyaline Casts Urine 0-2 /LPF (0-2); RBC Urine 0-2 /HPF (0-2); Squamous Epithelial Cell Urine 0-2 /HPF (0-2)
[2024-11-06 14:58] LABS: Alanine Aminotransferase 45 U/L (0-31); Albumin Level 4.4 g/dL (3.5-5.0); Alkaline Phosphatase 62 U/L (39-117); Anion Gap 10 (12-20); Aspartate Amino Transferase 33 U/L (5-31); Bilirubin Total 0.8 mg/dL (0.0-1.0); Blood Urea Nitrogen 20 mg/dL (9-16); Calcium 9.6 mg/dL (8.4-10.2); Carbon Dioxide 23 mmol/L (22-29); Chloride 110 mmol/L (96-108); Cholesterol 133 mg/dL (<200); Estimated Glomerular Filt Rate > 60; Glucose Fasting 88 mg/dL (60-99); Glucose Random 88 mg/dL (60-115); HDL Cholesterol 39 mg/dL (>40); LDL Cholesterol Calculated 69 mg/dL (<100); Sodium 139 mmol/L (135-145); Total Protein 7.6 g/dL (6.5-8.0); Triglycerides 129 mg/dL (<150)
[2024-11-06 15:15] LABS: Free T4 (Free Thyroxine) 1.38 ng/dL (0.71-1.85); Thyroid Stimulating Hormone 0.85 uIU/mL (0.32-4.0)
[2024-11-06 19:43] LABS: Creatinine Urine 123.42 mg/dL; Microalbum/Creatinine Ratio Ur 11.3 ug/mg cr (<30)
[2024-11-07 10:23] LABS: Triiodothyronine T3 Total 100 ng/dL (76-181)
[2024-11-07 18:42] LABS: LDL Cholesterol Direct 75 mg/dL (<100)
== END 2024-11-06 12:00 | disposition home or self-care (01) ==
LOC: HO.WFDLDS 11:59
PROVIDERS: Visit Provider Family Medicine
DX: Z00.00 Encounter for general adult medical examination without abnormal findings (principal); R35.0 Frequency of micturition; I10 Essential (primary) hypertension; E03.9 Hypothyroidism, unspecified; E78.5 Hyperlipidemia, unspecified; R74.8 Abnormal levels of other serum enzymes
CPT/HCPCS: 36415; 80053; 80061; 81001; 82043; 82570; 83721; 84439; 84443; 84480; 85025; 87086; 87088; 87186

== ENCOUNTER 2024-11-07 09:28 | Outpatient (REF) | payer BC, MEDICARE, SELFPAY | END 2024-11-07 09:29 | disposition home or self-care (01) | LOC: HO.LAB 09:28 | PROVIDERS: PCP Family Medicine; Visit Provider Family Medicine | DX: Z13.89 Encounter for screening for other disorder (principal) ==

== ENCOUNTER 2024-12-27 10:50 | Outpatient (AMB) | payer MEDICARE, SELFPAY ==
--- NOTE | 2024-12-27 11:06 | A.OFFPC_ITS ---
Vital Signs 12/27/24 11:08 Height 5 ft 0.83 in Weight 163 lb 4 oz BMI 31.0 BP 110/60 Blood Pressure Location Rt brachial Position Sitting Respiration 14 Pulse 71 Pulse Source Pulse Oximeter Temp 97.9 F Temp Source Oral Pulse Oximetry (%) 97 Oxygen Delivery Method Room Air Intake Visit Reasons: Burning sensation in right breast Intake Note: patient is scheduled to follow up with pcp for right breast discomfort Performing Arts Technicians Required: No Allergies walnut Allergy (Intermediate, Verified 12/27/24 11:07) tongue irritation codeine Allergy (Mild, Verified 12/27/24 11:07) Palpitations Medication List - Last Reconciled 12/27/24 by Isidro Easley MD alendronate 70 mg PO QWEEK 28 days aspirin 81 mg PO DAILY atorvastatin (Lipitor) 40 mg PO BEDTIME 90 days calcium carbonate 600 mg PO DAILY 90 days cholecalciferol (vitamin D3) 50 mcg PO DAILY 90 days ibuprofen 400 mg PO Q8H PRN 14 days levothyroxine 112 mcg PO DAILY Tobacco use date assessed: 06/01/23 Fall risk assessment: No Falls in past year Last assessed Fall Risk: 12/27/24 Dental Screening Dental Screen Date: 06/01/23 HPI Burning sensation in right breast HPI Details 74 y/o female presents today with compla ints of burning sensation in R breast. Denies any skin changes, discharge. Also has ongoing leg pain, R knee and R leg pain. Has complaints of abd. discomfort. Also?had?ultrasound?of?her?liver?for?elevated?liver?enzymes?recently. This?should?coarse?hepatic?echotexture without?masses. Elastography?rules?out?compensated?advanced chronic?liver?disease. She reports abnormal urine odor. [facility] Medical History (Updated 12/27/24 @ 11:52 by Fredo Todd) Pituitary cyst Deep vein thrombosis Osteopenia Surgical History History of hip replacement H/O: hysterectomy Family History Mother Breast cancer Other Mental health disorder Social History Household Members: Children Housing: Apartment Patient Tobacco Use Status: Never used Tobacco e-Cigarette/Vaping Use: Never Used Second Hand Smoke Exposure: No service: No Current occupational status: retired Current occupational exposures/hazards: No Cognitive needs: No Hearing needs: No Vision needs: No Questionnaire PHQ-9 Over the last 2 weeks, how often have you been bothered by any of the following problems? 1. Little interest or pleasure in doing things: not at all 2. Feeling down, depressed, or hopeless: not at all 3. Trouble falling or staying asleep, or sleeping too much: not at all 4. Feeling tired or having little energy: not at all 5. Poor appetite or overeating: not at all 6. Feeling bad about yourself - or that you are a failure or have let yourself or your family down: not at all 7. Trouble concentrating on things, such as reading the newspaper or watching television: not at all 8. Moving or speaking so slowly that other people could have noticed. Or the opposite - being so fidgety or restless that you have been moving around a lot more than usual: not at all 9. Thoughts that you would be better off or of hurting yourself in some way: not at all Total score: 0 Depression Screening Interpretation: Negative Depression Screening Done: Yes 81624 - PHQ-9 Billing: Yes Source: Developed by Drs. Rojelio Stratton, Tere Christian, Parish Coffman and colleagues, with an educational beth from [employer]. Thrive Questionnaire Date Thrive assessed: 05/08/23 I am a: Parent/Caregiver What is your living situation today?: I have a steady place to live Within the past 12 months, did the food you bought not last and you didn't have the money to get more?: Never true Within the past 12 months, did you worry whether your food would run out before you got money to buy more?: Never true Do you have trouble paying for medicines?: Yes Do you have trouble getting transportation to medical appointments?: Yes Do you have trouble paying your heating and electricity bill?: Yes Do you have trouble taking care of your child, family member or friend?: No Do you have trouble with day-to-day activities such as bathing, preparing meals, shopping, managing finances, etc.?: No Are you currently unemployed and looking for a job?: I choose not to answer this question Are you interested in more education?: I choose not to answer this question Please select the resources that you would like help with: Paying for medicine and Utilities Currently or been in a relationship where the following occur: No concerns reported THRIVE Score: 2 AUDIT C Alcohol Use Questionnaire (AUDIT-C) 1. How often do you have a drink containing alcohol?: Never Total Score: 0 Score Reviewed/Action Taken: Yes LUCAS-7 AMB Questionnaire LUCAS-7 Date LUCAS - 7 assessed: 12/27/24 Feeling nervous, anxious, or on edge: 0 = Not at all Not being able to stop or control worryin = Not at all Worrying too much about different things: 0 = Not at all Trouble relaxin = Not at all Being so restless that it is hard to sit still: 0 = Not at all Becoming easily annoyed or irritable: 0 = Not at all Feeling afraid as if something awful might happen: 0 = Not at all Total LUCAS-7 score (0-4 normal; 5-9 mild; 10-14 moderate; 15-21 severe): 0 Source: Developed by Drs. Rojelio Stratton, Tere Christian, Parish Coffman and colleagues, with an educational beth from [employer]. LUCAS-7 Assessment Billing LUCAS-7 Assessment Tool: LUCAS-7 Assessment 78167 Review of Systems Const Denies chills, Denies fatigue, Denies fever(s), Denies headache(s) and Denies weakness ENT Denies dizziness and Denies headache(s) Card Denies dyspnea Resp Denies cough, Denies dyspnea, Denies wheezing and Denies other (shortness of breath) GI Reports abdominal pain Musc Denies numbness and Denies tingling Neuro Denies dizziness, Denies headache(s), Denies numbness, Denies tingling and Denies weakness Psych Denies anxiety and Denies depression Endo Denies fatigue Aller/Immun Denies wheezing Physical exam (Primary Care) Vital Signs: Last Vital Signs Temp 97.9 F 12/27/24 11:08 Pulse 71 12/27/24 11:08 Resp 14 12/27/24 11:08 BP 110/60 12/27/24 11:08 Pulse Ox 97 12/27/24 11:08 Oxygen Delivery Method Room Air 12/27/24 11:08 BMI result Body Mass Index 31.0 Tobacco/Smoking Status: Tobacco use Status Tobacco use date assessed 06/01/23 12/27/24 11:12 Patient Tobacco Use Status Never used Tobacco 12/27/24 11:12 e-Cigarette/Vaping Use Never Used 12/27/24 11:12 PHQ-9: PHQ-9 Score PHQ-9: Total score 0 12/27/24 11:21 Depression Screening Interpretation: Negative Thrive Assessment: Date of Thrive Assessment Date Thrive assessed 05/08/23 12/27/24 11:12 Currently or been in a relationship where the following occur: No concerns reported Const General: well developed; No acute distress Nutritional Appearance: well nourished Orientation/consciousness: patient oriented x3 HENMT Head: Yes normocephalic and Yes atraumatic Eyes General: appearance normal, both eyes and all related structures Pupils: Equal, round and reactive pupils present EOM: EOMs intact bilaterally Resp Effort & Inspection: normal respiratory effort Neuro General: patient oriented x3 and gait normal Cranial nerves: Yes Equal, round and reactive pupils present Psych Affect: normal affect Coding Level of Care Code Est Pt Level 4 (79454) Diagnoses Breast pain, right N64.4 Abdominal discomfort R10.9 Leg pain M79.606 Abnormal urine odor R82.90 Additional Codes LUCAS-7 Assessment Billing - LUCAS-7 Assessment Tool: LUCAS-7 Assessment 14815 ([id number]) PHQ-9 - 53443 - PHQ-9 Billing: Yes ([id number]) Assessment & Plan Assessment & Plan (1) Breast pain, right: Code(s): N64.4 - Mastodynia Category: Medical Plan: Right?lateral?breast?pain She?denies?any?modifying?factors. Tenderness to?palpation?at 9?o'clock?to?12?o'clock?position?and?she?does?have?fibrous?breasts?but?No?masses ?or?lumps?palpated. Will?get?diagnostic?mammogram?and?ultrasound (2) Abdominal discomfort: Code(s): R10.9 - Unspecified abdominal pain Category: Medical Plan: Patient?has?complaint?of?abdominal?pain. Tender?at?attachment?of?rectus?muscles?to?inferior?costal?margin. Some?pain?with?flexing?at?the?abdomen Also?had?ultrasound?of?her?liver?for?elevated?liver?enzymes?recently. This?should?coarse?hepatic?echotexture without?masses. Elastography?rules?out?compensated?advanced chronic?liver?disease. (3) Leg pain: Code(s): M79.606 - Pain in leg, unspecified Category: Medical Plan: Ongoing?right?knee & leg?pain which is worsening Had seen ortho in the past Check?x-ray?of?right Referred?to?Ortho (4) Abnormal urine odor: Code(s): R82.90 - Unspecified abnormal findings in urine Category: Medical Plan: Will?treat?empirically?with?nitrofurantoin Sending?urine?to?the?lab?for?urinalysis?with?reflex?to?cultureto?palpation Orders: Orders MM diagnostic mammo BI Today N64.4 - Mastodynia US breast RT complete Today N64.4 - Mastodynia XR knee RT 2V Today M17.11 - Unilateral primary osteoarthritis, right knee, M25.561 - Pain in right knee, M79.606 - Pain in leg, unspecified UA CC w/rflx Micro + Cult Today R82.90 - Unspecified abnormal findings in urine, Z00.00 - Encounter for general adult medical examination without abnormal findings Referrals Orthopedics Referral M17.11 - Unilateral primary osteoarthritis, right knee, M79.606 - Pain in leg, unspecified Medications: New nitrofurantoin macrocrystal must administer with a meal/food 100 mg PO Q12H 7 days 14 caps 0RF Refilled ibuprofen 400 mg PO Q8H 14 days PRN 52 tabs 1RF pain E03.9 - Hypothyroidism, unspecified
[2024-12-27 11:08] VITALS: BP 110/60; PULSE 71; RESP 14; TEMP 36.6; O2SAT 97; BMI 31.0
== END 2024-12-27 12:07 | disposition home or self-care (01) ==
PROVIDERS: PCP Family Medicine; Visit Provider Family Medicine
DX: N64.4 Mastodynia (principal); R10.9 Unspecified abdominal pain; M79.606 Pain in leg, unspecified; R82.90 Unspecified abnormal findings in urine

== ENCOUNTER → 2024-12-27 10:50 | Outpatient (BNVA) | payer BC, MEDICARE, SELFPAY | PROVIDERS: PCP Family Medicine; Visit Provider Family Medicine ==

== ENCOUNTER 2024-12-27 11:56 | Outpatient (REF) | payer MEDICARE, SELFPAY ==
[2024-12-27 14:01] LABS: Appearance Urine Clear; Color Urine Yellow; Glucose Urine UA Negative (Negative); Leukocyte Esterase Urine Small (1+) (Negative); Nitrite Urine Positive (Negative); PH 6.5 (5.0-9.0); UMIC TRIGGER UA YES; UMIC TRIGGER UACC YES; Urine Blood Negative (Negative); Urine Ketones Negative (Negative); Urine Protein Negative (Neg-Trace)
[2024-12-27 14:16] LABS: Bacteria Urine 4+ (None Seen); Hyaline Casts Urine 0-2 /LPF (0-2); RBC Urine 0-2 /HPF (0-2); Squamous Epithelial Cell Urine 0-2 /HPF (0-2); UACC Culture Trigger YES; WBC Urine 0-5 /HPF (0-5)
[2024-12-27 14:52] LABS: Free T4 (Free Thyroxine) 1.31 ng/dL (0.71-1.85)
== END 2024-12-27 11:57 | disposition home or self-care (01) ==
LOC: HO.WFDLDS 11:56
PROVIDERS: Referring Provider Internal Medicine Endocrinology, Diabetes & Metabolism; Visit Provider Family Medicine
DX: N64.4 Mastodynia (principal); R10.9 Unspecified abdominal pain; M25.561 Pain in right knee; M79.604 Pain in right leg; R82.90 Unspecified abnormal findings in urine; E03.9 Hypothyroidism, unspecified
CPT/HCPCS: 36415; 81001; 81003; 84439; 87086; 87088; 87186; 96127; 99212

== ENCOUNTER 2025-02-25 08:30 | Outpatient (REF) | payer MEDICARE, BC, SELFPAY ==
--- NOTE | ~2025-02-25 | XR_ITS ---
EXAMINATION: XR KNEE, RIGHT CLINICAL INFORMATION: M25.569 - Pain in unspecified knee COMPARISON: None available. TECHNIQUE: AP standing, lateral and sunrise views of the right knee. FINDINGS: There is moderate narrowing of the lateral joint space. There is moderate subchondral sclerosis. There are moderate marginal osteophytes in the lateral compartment. There is possible faint chondrocalcinosis. Central lucency projects over the subchondral cortex in the central femoral condyle on the frontal view. The medial compartment demonstrates marginal osteophyte along the tibial plateau. Intercondylar tubercles are peaked. Superior pole osteophyte is seen on the involving patella.. There is no joint effusion. The distal end of a femoral stem and cement is noted in the femur. XR/XR knee RT 3V IMPRESSION: Moderate osteoarthritis most pronounced in the lateral compartment with possible subchondral insufficiency fracture involving the lateral femoral condyle. Electronically signed by: Ryan Prajapati MD 02/25/2025 04:49 PM EDT
== END 2025-02-25 08:31 | disposition home or self-care (01) ==
LOC: HO.HOSX 08:30
PROVIDERS: Visit Provider Physician Assistant
DX: M25.561 Pain in right knee (principal); M17.11 Unilateral primary osteoarthritis, right knee
CPT/HCPCS: 20610; 73562; 99202; J1010; J2003

== ENCOUNTER 2025-02-25 13:52 | Outpatient (AMB) | payer MEDICARE, SELFPAY ==
--- NOTE | 2025-02-25 13:56 | MHC.OFFVIS ---
Vital Signs 02/25/25 14:05 Height 5 ft Weight 163 lb BMI 31.8 Intake Visit Reasons: New Pt - right knee pian Intake Note: Magnolia is a 74 year old female who presents today as a new patient for a evolution of her right knee pain. Previous treatment? Patient reports ongoing pain for many years. She states that her pain is on the whole knee. Patient notices that her pain is worse when she is laying down, getting up from a sitting position. She has tried and failed icing, heat, resting and taking Tylenol/Motrin. Allergies walnut Allergy (Intermediate, Verified 02/25/25 14:04) tongue irritation codeine Allergy (Mild, Verified 02/25/25 14:04) Palpitations HPI HPI New Pt - right knee pian: Details: Ms. Sauceda is a 74 yo female who presents to the office today for evaluation of right knee pain. She reports that she was told she would likely need a knee replacement. She has had pain in the right knee for quite some time. She has not had any treatment for the right knee in the past. Patient notices that her pain is worse when she is laying down, getting up from a sitting position. She has tried and failed icing, heat, resting and taking Tylenol/Motrin. [facility] Medical History (Updated 12/27/24 @ 11:52 by Fredo Todd) Pituitary cyst Deep vein thrombosis Osteopenia Surgical History History of hip replacement H/O: hysterectomy Family History Mother Breast cancer Other Mental health disorder Social History Household Members: Children Housing: Apartment Patient Tobacco Use Status: Never used Tobacco e-Cigarette/Vaping Use: Never Used Second Hand Smoke Exposure: No service: No Current occupational status: retired Current occupational exposures/hazards: No Cognitive needs: No Hearing needs: No Vision needs: No Review of Systems Const All systems reviewed & are unremarkable except as noted in HPI and below Physical Exam Vital Signs: BMI result Body Mass Index 31.8 Const General: cooperative, healthy appearing and no acute distress Resp Effort & Inspection: normal respiratory effort and able to speak in complete sentences Extrem Other: Right knee full range of motion. Slight tenderness to palpation both medial and lateral joint lines. Crepitus felt with range of motion. NVI. Office Procedures AMB Joint Injection/Aspiration Joint Injection/Aspiration Primary Site: right knee Prep: site was prepped using aseptic technique, ethochloride spray was applied and injection warnings given Injected: 80 mg of, DepoMedrol, with 8 mL of (2% plain lidocaine) and in the joint Approach Used: anterolateral Procedure: The patient tolerated the procedure well, but had some pain with the injection and there was some relief with the local anesthesia Coding - Large joint Procedure code (CPT) selection complete Assessment & Plan Assessment & Plan (1) Osteoarthritis of right knee: Code(s): M17.11 - Unilateral primary osteoarthritis, right knee Category: Medical Plan The patient was offered a cortisone injection in the right knee with 80 mg of DepoMedrol. The patient was explained the risks, benefits, and alternatives to receiving this injection. After receiving consent for the injection, the patient had the procedure done while in the office today. The patient tolerated the procedure well with no complications. Follow-up will be p.r.n., or sooner if needed X-rays of the back right knee which were obtained while in the office today and were reviewed by me, Ingrid Capps PA-C, revealed significant right knee osteoarthritis. Orders: Orders XR knee RT 3V Today M25.569 - Pain in unspecified knee Coding Level of Care Code New Pt Level 3 (50440) Diagnoses Osteoarthritis of right knee M17.11 CPT Codes Coding - 30744 Large joint: 11665 - Large joint ([id number])
[2025-02-25 14:05] VITALS: BMI 31.8
== END 2025-02-25 14:55 | disposition home or self-care (01) ==
LOC: HO.HOS 13:53
PROVIDERS: PCP Family Medicine; Visit Provider Physician Assistant
DX: M17.11 Unilateral primary osteoarthritis, right knee (principal)
CPT/HCPCS: 20610; 99203

== ENCOUNTER → 2025-02-25 13:55 | Outpatient (BNV) | payer BC, MEDICARE, SELFPAY | PROVIDERS: Visit Provider Radiology Diagnostic Radiology | DX: M17.11 Unilateral primary osteoarthritis, right knee (principal) | CPT/HCPCS: 73562 ==

== ENCOUNTER 2025-02-26 11:46 | Outpatient (REF) | payer MEDICARE, BC, SELFPAY ==
--- NOTE | ~2025-02-26 | MM_ITS ---
EXAMINATION: MM DIAGNOSTIC DIGITAL BREAST TOMOSYNTHESIS, BILATERAL Right limited ultrasound. CLINICAL INFORMATION: Right lateral breast pain for 3 months on and off. COMPARISON: Mammography: Comparison is made with relevant prior exams. TECHNIQUE: Digital breast mammography with tomosynthesis is performed in both the craniocaudal and mediolateral oblique views along with computer-aided detection (CAD). FINDINGS: There are scattered areas of fibroglandular density (ACR BI-RADS breast composition Category b). There are no significant masses, abnormal calcifications, or other abnormalities. Targeted color Doppler ultrasound scanning in the right breast area of patient's pain from 8-1 o'clock demonstrates normal fibronodular breast tissue. There is no sonographic abnormal findings. Results are provided to the patient at time of visit by the technologist. MM/MM tomosynthesis diagnostic BI IMPRESSION: Left: Negative. Right: No mammographic or sonographic abnormal findings to account for the patient's right breast pain. Recommend clinical evaluation and follow-up. ASSESSMENT: BI-RADS BI-RADS 1 - Negative RECOMMENDATION: 1 year F/U This patient's information was entered into a reminder system with a target due date for their next mammogram. Electronically signed by: Edith Jerez DO 02/26/2025 01:55 PM EDT
== END 2025-02-26 11:47 | disposition home or self-care (01) ==
LOC: HO.MAMMO 11:46
PROVIDERS: PCP Family Medicine; Visit Provider Family Medicine
DX: N64.4 Mastodynia (principal)
CPT/HCPCS: 76642; 77062; 77066

== ENCOUNTER → 2025-02-26 12:00 | Outpatient (BNV) | payer BC, MEDICARE, SELFPAY | PROVIDERS: PCP Family Medicine; Visit Provider Internal Medicine | DX: N64.4 Mastodynia (principal) | CPT/HCPCS: 76642; 77066; G0279 ==

== ENCOUNTER 2025-03-04 13:55 | Outpatient (AMB) | payer MEDICARE, BC, SELFPAY ==
--- NOTE | 2025-03-04 13:57 | MHC.OFFVIS ---
Vital Signs 03/04/25 13:59 Height 5 ft 2.5 in Weight 156 lb 1.396 oz BMI 28.1 BP 92/56 L Blood Pressure Location Rt brachial Position Sitting Pulse 81 Pulse Source Pulse Oximeter Pulse Oximetry (%) 98 Oxygen Delivery Method Room Air Intake Visit Reasons: Pituitary cyst Intake Note: Patient present today for Pituitary Cyst. Director Talent Management Required: No Accompanied by: Self / Same As Patient Allergies walnut Allergy (Intermediate, Verified 03/04/25 14:01) tongue irritation codeine Allergy (Mild, Verified 03/04/25 14:01) Palpitations Medication List - Last Reconciled 03/04/25 by Rojelio Garcia MD alendronate 70 mg PO QWEEK 28 days aspirin 81 mg PO DAILY atorvastatin (Lipitor) 40 mg PO BEDTIME 90 days calcium carbonate 600 mg PO DAILY 90 days cholecalciferol (vitamin D3) 50 mcg PO DAILY 90 days ibuprofen 400 mg PO Q8H PRN 14 days levothyroxine 112 mcg PO DAILY nitrofurantoin macrocrystal 100 mg PO Q12H 7 days HPI Comments Details: 73 YO F with who is seen in consultation previously seen for hypothyroidism referred today for evaluation of pituitary cyst. Pituitary MRI showed a sellar cystic lesion with possible effect on the optic chiasm. Patient denies any symptoms of acromegaly or breast discharge. She denies any symptoms of excess cortisol or deficiency cortisol.Had pituitary cyst in [place] in 2014 had transphenoidal surgery , Noticed some loss of vision The patient is a 74-year-old female presenting with issues related to a pituitary cyst. She was initially diagnosed in 2014 and underwent a transnasal surgical intervention in [place]. The cyst began increasing in size after a year, but the patient did not obtain further treatment due to personal circumstances. Current symptoms include visual impairments, specifically difficulties with peripheral vision, pointing toward visual field loss. An MRI showed a considerable cystic lesion, potentially affecting the optic nerves, but the patient denies headaches. She experiences occasional pinching sensations in the head. Recent tests, including a mammogram, were normal. Moreover, the patient reports no indications of endocrine dysfunctions, such as galactorrhea or acromegaly-like symptoms, but describes recent dizziness not related to positional changes. There's an emphasis on the potential impact of the cyst on visual structures with further investigation warranted. [facility] Medical History (Updated 12/27/24 @ 11:52 by Fredo Todd) Pituitary cyst Deep vein thrombosis Osteopenia Surgical History History of hip replacement H/O: hysterectomy Family History Mother Breast cancer Other Mental health disorder Social History Household Members: Children Housing: Apartment Patient Tobacco Use Status: Never used Tobacco e-Cigarette/Vaping Use: Never Used Second Hand Smoke Exposure: No service: No Current occupational status: retired Current occupational exposures/hazards: No Cognitive needs: No Hearing needs: No Vision needs: No Physical Exam Vital Signs: Last Vital Signs Pulse 81 03/04/25 13:59 BP 92/56 L 03/04/25 13:59 Pulse Ox 98 03/04/25 13:59 Oxygen Delivery Method Room Air 03/04/25 13:59 BMI result Body Mass Index 28.1 Const Other: Absence of acromegalic or cushingoid appearance. There is no visual field loss by gross confrontation Assessment & Plan Assessment & Plan (1) History of pituitary tumor: Code(s): Z87.898 - Personal history of other specified conditions Category: Medical Plan: This is a 74-year-old female with a history of pituitary cyst with possible compression of the optic chiasm. We will rule out hyper secretion or hypo secretion of pituitary hormones. Appears to be clinically and biochemically euthyroid Plan is to check a fasting prolactin, IGF-1 level and cortisol level at 08:00 a. We will also check 24 hour urine for free cortisol and creatinine. We will send patient to expert pituitary neurosurgeon namely Dr. Shyanne Chiang at [place] [id number]. Pituitary cyst The patient has a pituitary cyst identified via MRI, suggesting compression effects on nearby structures. Continued follow-up with a neurosurgical specialist, specifically Dr. Shyanne Chiang, is advised to determine the need for intervention, as her expertise in pituitary lesions will provide a definitive evaluation. Blood work to assess hormone levels for comprehensive management is planned. I discussed the significance of the pituitary cyst and its potential to impact visual function due to pressure effects on the optic nerves. I explained the importance of a specialized neurosurgical evaluation in [place] under Dr. Shyanne Chiang's care due to her expertise. We discussed the logistics of coordinating care for surgery if required and the need for comprehensive hormonal evaluations via blood and urine tests. I emphasized the risks of visual loss and hormonal dysregulation, which could occur if untreated, and outlined the next steps regarding coordinating care efficiently. - Call Dr. Shyanne Chiang's office to arrange a neurosurgical consultation. - Complete the blood and urine tests as directed. - Arrange for a detailed neuro-ophthalmology evaluation. - Maintain awareness of any changes in vision and report them promptly. - Keep copies of all medical records, imaging reports, and bring these to all appointments. - Follow instructions for blood tests to be done in the morning, fasting. - The patient had an opportunity to ask questions regarding treatment plan. The patient expressed understanding and agreement with the above treatment plan. Patient was informed and verbally consented to the use of an ambient scribe for clinic note documentation during this visit. Orders: Orders Prolactin Today - Personal history of other specified conditions IGF-1 (Somatomedin C) Today - Personal history of other specified conditions Cortisol, Free 24Hr Urine Today - Personal history of other specified conditions Cortisol Random Today - Personal history of other specified conditions Creatinine, 24 Hr Group Today - Personal history of other specified conditions Referrals Neurosurgery Referral . - Personal history of other specified conditions Coding Level of Care Code Est Pt Level 4 (09238) Diagnoses History of pituitary tumor
[2025-03-04 13:59] VITALS: BP 92/56; PULSE 81; O2SAT 98; BMI 28.1
== END 2025-03-04 14:40 | disposition home or self-care (01) ==
LOC: HO.ENCR 13:56
PROVIDERS: PCP Family Medicine; Visit Provider Internal Medicine Endocrinology, Diabetes & Metabolism
DX: Z87.898 Personal history of other specified conditions (principal)
CPT/HCPCS: 99214

== ENCOUNTER → 2025-03-04 13:55 | Outpatient (BNVA) | payer MEDICARE, BC, SELFPAY | PROVIDERS: PCP Family Medicine; Visit Provider Internal Medicine Endocrinology, Diabetes & Metabolism | DX: R42 Dizziness and giddiness (principal); E23.6 Other disorders of pituitary gland; Z87.898 Personal history of other specified conditions | CPT/HCPCS: 99212 ==

== ENCOUNTER 2025-05-08 09:29 | Outpatient (REF) | payer BC, MEDICARE, SELFPAY ==
[2025-05-13 16:28] LABS: IGF-1 (Somatomedin C) 70 ng/mL (34-245); IGF-1 Z Score (Female) -0.7 SD (-2.0 - +2.0)
== END 2025-05-08 09:30 | disposition home or self-care (01) ==
LOC: HO.LAB 09:29
PROVIDERS: PCP Family Medicine; Visit Provider Internal Medicine Endocrinology, Diabetes & Metabolism
DX: Z87.898 Personal history of other specified conditions (principal)
CPT/HCPCS: 36415; 82533; 84146; 84305

== ENCOUNTER 2025-05-12 10:18 | Outpatient (REF) | payer BC, MEDICARE, SELFPAY ==
[2025-05-12 11:38] LABS: Creatinine, mg/dL 88.00
[2025-05-12 12:42] LABS: Total Volume 24 Hour Urine 1200 mL
[2025-05-20 18:18] LABS: Total Volume, 24 Hr Urine 1200 mL
== END 2025-05-12 10:19 | disposition home or self-care (01) ==
LOC: HO.LNP 10:18
PROVIDERS: Visit Provider Internal Medicine Endocrinology, Diabetes & Metabolism
DX: Z87.898 Personal history of other specified conditions (principal)
CPT/HCPCS: 82530; 82570

== ENCOUNTER 2025-05-29 07:05 | Outpatient (RCR) | payer MEDICARE, SELFPAY ==
[2025-05-29 07:11] VITALS: BP 104/66; PULSE 72; RESP 16; TEMP 36.6; O2SAT 99
[2025-05-30 12:33] LABS: Cortisol 60 Minute 24.2 mcg/dL; Cortisol 60 Minute Time 2 0833; Cortisol Baseline Time 1 0733
== END 2025-05-29 10:48 | disposition home or self-care (01) ==
LOC: HO.INF 07:05
PROVIDERS: Visit Provider Internal Medicine Endocrinology, Diabetes & Metabolism
DX: Z87.898 Personal history of other specified conditions (principal)
CPT/HCPCS: 36415; 82533; 96374; J0834

== ENCOUNTER 2025-09-23 11:36 | Outpatient (AMB) | payer MEDICARE, SELFPAY ==
[2025-09-23 11:45] VITALS: BP 108/66; PULSE 82; TEMP 36.5; O2SAT 98; BMI 28.3
--- NOTE | 2025-09-23 11:45 | AM.OFFWIN_ITS ---
Intake Vital Signs 09/23/25 11:45 Height 5 ft 2 in Weight 155 lb BMI 28.3 BP 108/66 Blood Pressure Location Lt brachial Position Sitting Pulse 82 Pulse Source Pulse Oximeter Temp 97.7 F Temp Source Oral Pulse Oximetry (%) 98 Oxygen Delivery Method Room Air Intake Visit Reasons: EP Pain under right arm Intake Note: pt presents with pain to area auxiliary/breast fold for 4 days- pt reports having a cough for a couple weeks about 3 weeks prior to this pain - also notes inhaling carbon minoxide around the same time as her coughing period Patient Tobacco Use Status: Never used Tobacco Allergies walnut Allergy (Intermediate, Verified 09/23/25 11:52) tongue irritation codeine Allergy (Mild, Verified 09/23/25 11:52) Palpitations Do you need a note to return to daycare/school/sports/work: No HPI HPI Comments History of Present Illness Details History of Present Illness - The patient is a 75-year-old female pr esenting with pain in her right breast and axilla. - The pain began a couple of days ago, i s described as very painful, and is exacerbated by breathing and certain movements. - She reports that the pain has been get ting worse over the last few months, though it was previously only a discomfort. - She has a history of this same right b reast pain and underwent a diagnostic mammogram and ultrasound in February of this year, which showed no mammographic or sonographic abnormalities. - The findings were classified as ACR BI -RADS category B for fibroglandular density, with a BI-RADS assessment of 1 (negative), and a one-year follow-up was recommended. - Her pain resolved after the previous w orkup but has now returned with increased severity over the last few days. She can feel a lump which is tender when she palpates it. - Past medical history is significant fo r myocardial inflammation many years ago that has since resolved, and chronic knee problems for which she was advised to have a knee replacement. She does use a cane for ambulation but does not use crutches ever. - She also had surgery for a right humer us fracture around 2004 and was told she might develop arthritis in the joint. - She denies any history of cancer, pulm onary embolism, or COPD. - Family history is positive for breast cancer in her mother. - She has regular mammograms and denies any personal history of breast cancer. - She denies any recent falls or trauma to the area. - Denies shortness of breath or chest pa in or pain with inspiration. [facility] Medical History (Updated 09/23/25 @ 12:45 by Velma Brush PA-C) Painful lumpy right breast Pituitary cyst Deep vein thrombosis Osteopenia Surgical History History of hip replacement H/O: hysterectomy Family History Mother Breast cancer Other Mental health disorder Social History Household Members: Children Housing: Apartment Patient Tobacco Use Status: Never used Tobacco e-Cigarette/Vaping Use: Never Used Second Hand Smoke Exposure: No service: No Current occupational status: retired Current occupational exposures/hazards: No Cognitive needs: No Hearing needs: No Vision needs: No Review of Systems Narrative Review of Systems - Breast: Reports a very painful lump in the right breast and pain in the surrounding area and axilla. - Denies skin changes. - Respiratory: Reports pain with breathing. - Denies shortness of breath or wheezing. - Musculoskeletal: Reports pain with certain movements. - Reports having problems getting up and walking due to knee issues. - Constitutional: Denies recent falls or trauma. All systems reviewed and are unremarkable except as noted in HPI Physical Exam Exam Exam: Physical Exam General: Cooperative, healthy appearing, comfortable, no acute distress and well developed Orientation: Patient oriented x3 Limitations: Problems getting up and walking, uses a cane sometimes Head: Normal to inspection Ears: Hearing grossly normal bilaterally Nose: Normal External nose present Face and sinus: Normal facial exam Eyes: Appearance normal, both eyes and all related structures Neck: Normal visual inspection and Yes full ROM Respiratory: Normal respiratory effort and able to speak in complete sentences. No shortness of breath or wheezing. Chest: right breast 10-11 o'clock with palpable lump TTP, no skin changes or peau d'orange noted, no warmth, tender into right axilla Skin: No rashes or lesions noted, no skin changes, no orange color, no skin changes. Neuro: Patient oriented x3 Extremities: Normal to inspection, full ROM Vital Signs: Last Vital Signs Temp 97.7 F 09/23/25 11:45 Pulse 82 09/23/25 11:45 BP 108/66 09/23/25 11:45 Pulse Ox 98 09/23/25 11:45 Oxygen Delivery Method Room Air 09/23/25 11:45 BMI result Body Mass Index 28.3 Assessment & Plan Assessment & Plan (1) Painful lumpy right breast: Code(s): N64.4 - Mastodynia; N63.10 - Unspecified lump in the right breast, unspecified quadrant Plan Patient was informed and verbally consented to the use of an ambient scribe for clinic note documentation during this visit. Right Breast Lump - The patient presents with recurrent, worsening right breast pain and a palpable, tender lump on exam. - Despite a negative mammogram and ultrasound in February of this year, the new finding of a palpable lump, along with a maternal history of breast cancer, warrants an expedited workup. - A STAT diagnostic mammogram and breast ultrasound will be ordered to re-e valuate the right breast. - For symptomatic relief, the patient can take Aleve, two tablets every 12 hours. - The patient [facility] been provided [facility] and is instructed to call to schedule the imaging studies if she does not hear from them. Orders: Orders MM diagnostic mammo unilat RT Today N63.10 - Unspecified lump in the right breast, unspecified quadrant, N64.4 - Mastodynia US breast RT complete Today N63.10 - Unspecified lump in the right breast, unspecified quadrant, N64.4 - Mastodynia Coding Level of Care Code Est Pt Level 4 (90130) Diagnoses Painful lumpy right breast N64.4; N63.10
== END 2025-09-23 13:36 | disposition home or self-care (01) ==
PROVIDERS: PCP Family Medicine; Visit Provider Physician Assistant
DX: N64.4 Mastodynia (principal); N63.10 Unspecified lump in the right breast, unspecified quadrant

== ENCOUNTER → 2025-09-23 11:36 | Outpatient (BNVA) | payer MEDICARE, SELFPAY | PROVIDERS: PCP Family Medicine; Visit Provider Physician Assistant | DX: N63.10 Unspecified lump in the right breast, unspecified quadrant (principal); N64.4 Mastodynia; Z80.3 Family history of malignant neoplasm of breast | CPT/HCPCS: 99212 ==